=== PATIENT | male | born 1945 | race Caucasian/White ===

== ENCOUNTER → 2021-10-31 | Outpatient (CLI) | payer MEDICARE, OTHER ==
[2021-10-31 12:14] LABS: BASOPHILS # (AUTO) 0.1 10^3/uL (0.0-0.1); BASOPHILS % (AUTO) 0 % (0-10); EOSINOPHILS % (AUTO) 0 % (0-10); HEMATOCRIT 37 % (40-54); HEMOGLOBIN 12.2 g/dL (13.3-17.7); LYMPHOCYTES % (AUTO) 9 % (12-44); MEAN CORPUSCULAR HEMOGLOBIN 29 pg (25-34); MEAN CORPUSCULAR HGB CONC 33 g/dL (32-36); MEAN CORPUSCULAR VOLUME 88 fL (80-99); MEAN PLATELET VOLUME 9.7 fL (9.0-12.2); MONOCYTES % (AUTO) 4 % (0-12); NEUTROPHILS # (AUTO) 19.2 10^3/uL (1.8-7.8); NEUTROPHILS % (AUTO) 85 % (42-75); PLATELET COUNT 179 10^3/uL (130-400); WHITE BLOOD COUNT 22.6 10^3/uL (4.3-11.0)
[2021-10-31 12:56] LABS: BAND NEUTROPHILS 1 %; INR 2.9 (0.8-1.4); LYMPHOCYTES % (MANUAL) 7 %; MONOCYTES % (MANUAL) 4 %; NEUTROPHILS % (MANUAL) 86 %; PROTHROMBIN TIME PATIENT 30.6 SEC (12.2-14.7)
[2021-10-31 12:57] LABS: METAMYELOCYTES % 1 %; PLATELET ESTIMATE NORMAL; RBC MORPH NORMAL; REACTIVE LYMPHOCYTES 1 %
== END ==
LOC: LAB FS 11:40
PROVIDERS: ATTEND Registered Nurse Emergency
DX: I77.6 Arteritis, unspecified (principal); L03.90 Cellulitis, unspecified; I48.91 Unspecified atrial fibrillation; I13.0 Hypertensive heart and chronic kidney disease with heart failure and stage 1 through stage 4 chronic kidney disease, or unspecified chronic kidney disease; N18.9 Chronic kidney disease, unspecified; I50.9 Heart failure, unspecified; G89.29 Other chronic pain; E11.40 Type 2 diabetes mellitus with diabetic neuropathy, unspecified; E11.21 Type 2 diabetes mellitus with diabetic nephropathy
CPT/HCPCS: 36415; 80162; 85007; 85027; 85610

== ENCOUNTER 2021-12-03 12:39 | Emergency (ER) | payer MEDICARE ==
[~2021-12-03] VITALS: Ht 177.8 cm; Wt 99.8 kg
--- NOTE | 2021-12-03 13:26 | ED EENT ---
History of Present Illness General Chief Complaint: Nasal Problems Stated Complaint: EPISTAXIS History of Present Illness Date Seen by Provider: Dec 03, 2021 Time Seen by Provider: 13:22 Initial Comments 76-year-old male presents with nosebleed. Patient reports that he fell during the night last night and has a small laceration across his bridge of his nose. He states that since then he has continued to have a nosebleed out of his right nare. He has been having difficulty keeping it under control. Patient reports that he is on hospice. That he has a a lot of medical issues. That he was bending over with his dog yesterday, dizzy and fell forward. He is on warfarin. He denies any other injuries during the fall Allergies and Home Medications Patient Home Medication List Home Medication List Reviewed: Yes Review of Systems Review of Systems Constitutional: No chills, No fever Eyes: No Symptoms Reported Ears: No Symptoms Reported Nose: see HPI Mouth: no symptoms reported Throat: no symptoms reported Respiratory: no symptoms reported Cardiovascular: no symptoms reported Gastrointestinal: no symptoms reported Physical Exam Vital Signs Vital Signs - First Documented 12/03/21 13:19 Temp 35.1 Pulse 72 Resp 15 B/P (MAP) 151/73 (99) O2 Delivery Room Air Height, Weight, BMI Height: '" Weight: lbs. oz. kg; BMI Method: General Appearance: no apparent distress Eyes: bilateral eye normal inspection Ears: bilateral ear auricle normal Nose: other (Patient with a laceration on the distal aspect of the right nasal septum along with a small laceration on the bridge of the nose) Neck: non-tender, full range of motion, supple Cardiovascular: normal peripheral pulses, regular rate, rhythm Respiratory: lungs clear, normal breath sounds Gastrointestinal: non tender, soft Neurologic/Psychiatric: alert, normal mood/affect, oriented x 3 Skin: other (Laceration nasal septum) Progress/Results/Core Measures Results/Orders My Orders Orders - DEBORAH BAILEY DO Ct Head/Maxillofacial Wo (12/03/21 13:26) Tranexamic Acid Injection (Cyklokapron I (12/03/21 15:15) Medications Given in ED Current Medications Medications Dose Ordered Sig/Jacky Route Start Time Stop Time Status Last Admin Dose Admin Tranexamic Acid 1,000 mg STK-MED ONCE .ROUTE 12/03/21 15:15 12/03/21 15:19 DC 12/03/21 15:20 1,000 MG Vital Signs/I&O 12/03/21 13:19 Temp 35.1 Pulse 72 Resp 15 B/P (MAP) 151/73 (99) O2 Delivery Room Air Progress Progress Note : Progress Note Patient with a small abrasion/superficial laceration of the distal aspect of his right nasal septum. Patient was just having some oozing out of it. Attempted to control with pressure initially that did not work. Then attempted cauterization and it continued to ooze around the cauterization. Then tried tXa and blood stop packing with pressure that still continue to ooze. After multiple modalities. Finally put in a TXA soaked Rhino Rocket to provide pressure and oozing seem to subside. Recommended they leave it in for 24 hours then return to the ER or with her primary care provider to have it removed. Patient stable and discharged Departure Impression Primary Impression: Contusion of nose Qualified Codes: S00.33XA - Contusion of nose, initial encounter Additional Impression: Epistaxis Disposition: 01 HOME, SELF-CARE Condition: Stable Departure-Patient Inst. Referrals: YAHIR VILLALPANDO APRN (PCP) Primary Care Physician MAULIK PAIGE MD (Family) Primary Care Physician Patient Instructions: Contusion (DC), Nosebleeds Add. Discharge Instructions: Please return to the ER or follow with your primary care provider in approxi mately 24-36 hours to have nasal Rhino Rocket removed All discharge instructions reviewed with patient and/or family. Voiced un derstanding. DEBORAH BAILEY DO Dec 03, 2021 13:26
--- NOTE | 2021-12-03 14:17 | Diagnostic Imaging Report ---
PROCEDURE: CT head and maxillofacial without contrast. TECHNIQUE: Multiple contiguous axial images were obtained through the head and facial bones without the use of intravenous contrast. Auto Exposure Controls were utilized during the CT exam to meet ALARA standards for radiation dose reduction. INDICATION: Trauma and fall with epistaxis. COMPARISON: No prior studies are available for comparison. FINDINGS: CT HEAD: The ventricles and sulci are appropriate for the patient's age. No sulcal effacement or midline shift is identified. No acute intra-axial or extra-axial hemorrhage is detected. Cisterns are patent. Visualized paranasal sinuses are clear. IMPRESSION: No acute intracranial process is detected. CT FACE: Mandible is intact. Zygomatic arches are intact. Maxillary sinus joy are intact. No displaced nasal bone fracture is seen. The nasal septum appears to be intact. Orbital joy are intact. The visualized paranasal sinuses are clear. There does appear to be fluid in the nasal cavity. IMPRESSION: No definite facial bone fracture is detected. Dictated by: Dictated on workstation # [id number]
[2021-12-03] MEDS ORDERED: TRANEXAMIC ACID 100 MG/ML 10 ML INJECTION ONE (15:15)
[2021-12-03 17:25] VITALS: BP 147/89
== END 2021-12-03 17:25 | disposition home or self-care (01) ==
LOC: EDUNIT# 12:39 → ER FS 12:40
DX: S01.21XA Laceration without foreign body of nose, initial encounter (principal); Z51.5 Encounter for palliative care; W19.XXXA Unspecified fall, initial encounter
CPT/HCPCS: 70450; 70486